=== PATIENT | male | born 1960 | race Caucasian/White ===

== ENCOUNTER 2023-06-24 14:07 | Emergency (ER) | payer BC, SELFPAY ==
[2023-06-24 14:18] VITALS: BP 183/101; PULSE 73; RESP 18; TEMP 36.8; O2SAT 100
--- NOTE | 2023-06-24 14:39 | ED.GENADULT ---
HPI - General Adult General Chief complaint: Ear Stated complaint: Lt Ear Pain and Bleeding Time Seen by Provider: 06/24/23 14:25 Source: patient Mode of arrival: ambulatory Limitations: no limitations History of Present Illness HPI narrative: 62-year-old male patient presents to the [facility] with complaints of left ear pain and bleeding. Patient states that he has been having some muffled hearing to the left ear for the past couple of days after having a recent cold. Patient states that his pain got worse today which made him decide to come in to be seen in on the way here he felt a pop to the ear and immediately had pain relief and noticed bright red blood coming from the ear. Patient states he had a ruptured eardrum when he was younger as well. Denies taking any daily antihistamines. Related Data Home Medications Medication Instructions Recorded Confirmed multivitamin PO DAILY 05/29/23 Allergies Allergy/AdvReac Type Severity Reaction Status Date / Time No Known Allergies Allergy Verified 06/24/23 14:24 Review of Systems Review of Systems: CONSTITUTIONAL: Denies fever, chills, or sweats. EYES: Denies visual changes, redness, or discharge. ENT: Denies rhinorrhea, congestion, sore throat, Positive left otalgia. CARDIOVASCULAR: Denies chest pain, palpitations, or edema. RESPIRATORY: Denies cough or dyspnea. GASTROINTESTINAL: Denies abdominal pain, nausea, vomiting, or diarrhea. GENITOURINARY: Denies dysuria or hematuria. SKIN: Denies rash or itching. MUSCULOSKELETAL: Denies back pain, joint pain, or myalgia. NEUROLOGIC: Denies headache, numbness, or weakness. PSYCHIATRIC: Denies anxiety or depression. PMFSH Past Medical History Medical History (Updated 06/24/23 @ 14:47 by PAMELLA Townsend) Anxiety Hypercholesteremia Hypertension Insomnia Prediabetes Family History Family History Father Hypertension Cerebrovascular accident Heart problem Social History Social History Smoking status: Never smoker Comments at the time of my signature I agree with nursing past medical history, surgical, social, and family history. There is no relevant family history pertinent to the presenting complaint. Exam Narrative: GENERAL: Well-appearing, well-nourished, and in no acute distress. HEAD: Normocephalic, atraumatic. EYES: PERRLA and EOMI. ENT: Nares clear, no rhinorrhea or epistaxis. Mucous membranes moist. the left tympanic membrane is perforated and there is bright red blood in the left ear canal. Posterior pharynx with no erythema, tonsillar enlargement, exudates or lesions present. NECK: Supple. No lymphadenopathy CHEST: Clear to auscultation. No respiratory distress. HEART: Regular rate and rhythm. No murmur heard. Normal peripheral pulses. ABDOMEN: Soft, nontender, nondistended, normal active bowel sounds. EXTREMITIES: Normal range of motion. No edema. SKIN: Warm, dry, no rash. NEURO: No focal deficits. Alert and oriented x3. Course Course Level of Care: Express Care Visit Vital Signs Vital signs: Vital Signs Temperature 36.8 C 06/24/23 14:18 Pulse Rate 73 06/24/23 14:18 Respiratory Rate 18 06/24/23 14:18 Blood Pressure 183/101 H 06/24/23 14:18 Pulse Oximetry 100 06/24/23 14:18 Oxygen Delivery Room Air 06/24/23 14:18 Temperature 36.8 C 06/24/23 14:18 Pulse Rate 73 06/24/23 14:18 Respiratory Rate 18 06/24/23 14:18 Blood Pressure 183/101 H 06/24/23 14:18 Pulse Oximetry 100 06/24/23 14:18 Oxygen Delivery Room Air 06/24/23 14:18 Vital signs reviewed. The patient has been informed that they may have pre-hypertension or Hypertension based on a BP reading in the department. I recommend that the patient call the primary care provider listed on their discharge instructions or a physician of their choice this week to arrang
== END 2023-06-24 15:24 | disposition home or self-care (01) ==
PROVIDERS: Emergency Provider Nurse Practitioner Family; PCP Family Medicine
DX: H66.92 Otitis media, unspecified, left ear (principal); H72.92 Unspecified perforation of tympanic membrane, left ear; E78.00 Pure hypercholesterolemia, unspecified; I10 Essential (primary) hypertension; R73.03 Prediabetes; F41.9 Anxiety disorder, unspecified
CPT/HCPCS: 99213; G0463

== ENCOUNTER 2025-03-04 00:34 | Day surgery (SDC) | payer BC, SELFPAY ==
[2025-02-17 14:56] VITALS: BMI 20.7
--- OUTSIDE RECORDS SUMMARY | 2025-03-04 05:26 | XMS_ITS | Clinical Summary ---
Author Organization [facility] Address [facility] [place] [address] Care Team Providers Care Candle Molder Name Role Phone Vineet Recio MD Primary Care Provider [phone] Allergies No known active allergies Medications multi vitamin/mineral s (THERA-M ENHANCED) tablet Take 1 tablet by mouth daily. Active atorvastatin (LIPITOR) 10 MG tabletIndicatio ns:Hypercholest erolemia Take 1 tablet (10 mg total) by mouth daily. 90 tablet 3 04/12/2023 Active lisinopril (PRINIVIL) 20 MG tabletIndicatio ns:Essential hypertension,Im paired fasting glucose Take 1 tablet (20 mg total) by mouth daily. 90 tablet 3 04/12/2023 Active clonazePAM (KLONOPIN) 0.5 MG tabletIndicatio ns:Primary insomnia Take 0.5-1 tablets (0.25-0.5 mg total) by mouth nightly as needed for Anxiety. 90 tablet 1 05/14/2023 Active Active Problems Problem Noted Date Diagnosed Date Bilateral impacted cerumen 05/28/2019 Onychomycosis 04/24/2018 Hypercholesterolemia 07/04/2017 Essential hypertension 07/04/2017 Impaired fasting glucose 03/08/2015 Primary insomnia 03/08/2015 Resolved Problems Problem Noted Date Diagnosed Date Resolved Date Prostate cancer screening 04/12/2023 Routine general medical exam ination at a health care facility 04/12/2023 04/16/2023 Screening for prostate cancer 03/23/2021 03/28/2021 Preventative health care 03/23/2021 Screening for prostate cancer 01/28/2020 02/02/2020 Preventative health care 01/28/2020 Screen for colon cancer 01/28/202001/14 Prostate cancer screening 10/23/2018 Encounter for preventive health examination 03/03/2015 12/26/2019 Immunizations Immunization Administration Dates Next Due Dt (1-<7 Y.O.) 02/13/2002,08/21/1992 Flublok (Quadrivalent) 04/12/2023,04/05/2022,11/2020,01/28/2020 Influenza (Generic) 01/25/2016 Shingrix 07/07/2020,01/28/2020 Tdap (Generic) 01/25/2016 Family History Medical History Relation Comments Heart Father CAD Hypertension Father Relation Status Comments Father Social History Tobacco Use Types Packs/Day Years Used Date Smoking Tobacco: Never Smokeless Tobacco: Never Alcohol Use Standard Drinks/Week Comments Yes 0 (1 standard drink = 0.6 oz pur e alcohol) AUDIT-C Answer Date Recorded Frequency of Alcohol Consumption Monthly or less 10/10/2018 Average Number of Drinks Not on file 019 Frequency of Binge Drinking Not on file 09/15 PHQ-2 Answer Date Recorded PHQ-2 Score - If the patient scores above 3, please move on to questions 3-9 0 03/23/2021 Sex and Gender Information Value Date Recorded Sex Assigned at Not on file Legal Sex Male 11:15 PM RN INTERN Gender Identity Not on file Sexual Orientation Not on file 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 Not on file Not on file Not on file Last Filed Vital Signs Vital Sign Reading Time Taken Comments Blood Pressure 132/82 04/12/2023 2:28 PM RN INTERN Pulse 74 04/05/2022 8:16 AM RN INTERN Temperature - - Respiratory Rate 14 05/28/2019 8:35 AM RN INTERN Oxygen Saturation - - Inhaled Oxygen Concentration - - Weight 73.5 kg (162 lb) 04/12/2023 2:28 PM RN INTERN Height 181.6 cm (5' 11.5) 04/12/2023 2:28 PM CS T Body Mass Index 22.28 04/12/2023 2:28 PM RN INTERN Plan of Treatment Health Maintenance Due Date Last Done Comments Hepatitis C 1976 Pneumococcal Vaccine: 50+ Years (1 of 1 - PCV) 2008 COVID-19 Vaccine (2 - season) 2024 12/08/2020 Influenza Adult (#1) 2025 04/12/2023, 04/05/2022, 03/23/2021, Additional history exists DTaP, Tdap and Td Vaccines (2 - Td or Tdap) 01/24/2026 01/25/2016, 02/13/2002, 08/21/1992 Colorectal Cancer Screening Colonoscopy (10 Years) 08/19/2030 08/19/2020, 05/13/2009 RSV Immunization or 60+ Years (1 - 1-dose 75+ series) 2033 Zoster Vaccines Completed 07/07/2020, 01/28/2020 Hepatitis A Vaccines Aged Out No long er eligible based on patient's age to complete this topic Meningococcal B Vaccine Aged Out No l onger eligible based on patient's age to complete this topic Meningococcal Vaccine Aged Out No thanh diana eligible based on patient's age to complete this topic RSV Immunizations Under 20 Months Aged Out No longer eligible based on patient's age to complete this topic Procedures Procedure Name Priority Date/Time Associated Diagnosis Comments COLONOSCOPY GENERIC (SCAN ORDER) Routine 08/19/2020 from Last 3 Months or Most Recently Relevant to Health Maintenance Results * COLONOSCOPY (08/19/2020) us Documents Scanned SCANNING Final Result [facility] from Last 3 Months or Most Recently Relevant to Health Maintenance Insurance [facility] Care Teams Candle Molder Relationship Specialty Start Date End Date Vineet Recio MD [address] [id number] PCP - General FAMILY PRACTICE 05/24/21
--- OUTSIDE RECORDS SUMMARY | 2025-03-04 05:26 | XMS_ITS | Clinical Summary ---
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 Gender Identity Not on file Sexual Orientation Not on file Plan of Treatment Health Maintenance Due Date Last Done Comments Hepatitis C Virus (HCV) Screening 1960 TdaP Immunization 1960 Cologuard 11/20/2003 Immunochemical Fecal Occult Blood 11/20/2003 Pneumococcal Immunization (5 0+ years) (1 of 1 - PCV) 2008 Influenza Immunization (#1) 2024 01/28/2020 SARS-COV-2 Immunization (2 - season) 2024 12/08/2020 Colonoscopy 08/19/2030 08/19/2020 Colorectal Cancer Screening 08/19/2030 Respiratory Syncytial Virus (RSV) Immunization (Adult) (1 - 1-dose 75+ series) 2033 Zoster Immunization Completed 07/07/2020, 01/28/2020 Hepatitis B Immunization Aged Out No longer eligible based on patient's age to complete this topic Human Papillomavirus (HPV) Immunization Aged Out No longer eligible b ased on patient's age to complete this topic Meningococcal Immunization (ACWY) Aged Out No longer eligible b ased on patient's age to complete this topic Rotavirus Immunization Aged Out No lo nger eligible based on patient's age to complete this topic
--- OUTSIDE RECORDS SUMMARY | 2025-03-04 05:26 | XMS_ITS ---
Author Organization Unknown ENCOUNTERS Encounter Performer Location Date Diagnosis Diagnosis Status Outpatient [address] [id number] *Note: Encounters from your own facility or health system may be excluded. Allergies, Adverse Reactions, Alerts Allergen Type Severity Identification Date Medications Name Date Quantity Days Supplied GPI Number
[2025-03-04 11:30] VITALS: BP 152/93; PULSE 70; RESP 18; TEMP 36.6; O2SAT 100
[2025-03-04] MEDS: LACTATED RINGERS 1,000 ML 150 ML IV CONT (11:43)
--- NOTE | 2025-03-04 11:56 | WPDANESEPPF ---
Anes - Initial Pre Proc Eval Procedure: Operation Date: 03/04/25 12:30 Proposed Procedures p Screening Colonoscopy - Mathieu Sauceda MD Date/Time: 03/04/25 11:56 Surgeon: Mathieu Sauceda MD Pre Op Diagnosis: screening Patient Data Age: 64 Gender: M Height: 1.83 m Weight: 69.2 kg Last Vital Signs Temp 98 F 03/04/25 11:30 Pulse 70 03/04/25 11:30 Resp 18 03/04/25 11:30 BP 152/93 H 03/04/25 11:30 Pulse Ox 100 03/04/25 11:30 O2 Del Method Room Air 03/04/25 11:30 Allergies Allergy/AdvReac Type Severity Reaction Status Date / Time No Known Allergies Allergy Verified 03/04/25 11:27 Home Medications ?Medication ?Instructions ?Recorded ?Confirmed ?Type multivitamin See Rx Instructions PO DAILY 05/29/23 03/04/25 History atorvastatin 10 mg tablet See Rx Instructions .Route 01/29/25 03/04/25 Rx .COMPLEX #90 tabs lisinopril 20 mg tablet See Rx Instructions .Route 01/29/25 03/04/25 Rx .COMPLEX #90 tabs clonazepam 0.5 mg tablet 0.5 mg PO DAILY #90 tabs 02/25/25 03/04/25 Rx Patient hx anesthesia problems: none Family hx anesthesia problems: none Results Review: All pre-operative results and documents have been reviewed as part of the pre-operative evaluation. [facility] Past Medical History Medical History Hypercholesteremia Hypertension Insomnia Prediabetes Anxiety Family History Family History Father Hypertension Cerebrovascular accident Heart problem Social History Social History Social History: Caffeine- one cup daily Smoking status: Never smoker Alcohol intake: current Alcohol use details: rarely Substance use: never Substance use type: does not use Living arrangements: with family Spiritual care concerns: No Anes - Eval Final PreProcedure Day of Procedure 03/04/25 11:56 Patient weight: normal Lungs: normal air movement Airway: Mallampati scale class II Neurological: alert and oriented Last oral intake: >/= 8 hours ASA classification: II Emergent: no Anesthetic plan: proceed Anesthesia type and monitoring: general GIVS and standard monitoring Results Review: All pre-operative results and documents have been reviewed as part of the pre-operative evaluation. HTN, hyperlipidemia, very physically active, walking miles/day, no cp or sob. Informed Consent: The patient's anesthetic plan and its attendant risks and benefits were discussed with the patient/family/POA. Questions were solicited and answers provided to the satisfaction of the patient/family/POA.
[2025-03-04] MEDS: SIMETHICONE ORAL SUSPENSION 20 MG/0.3 ML 30 ML BOTTLE 0.6 ML IRRIGATION (12:57)
--- NOTE | 2025-03-04 13:07 | S_PTH ---
PATIENT: Nba Jones LOC: DAVID #:[id number] AGE/SX: 64/M ROOM: RE03/04/[address]: Mathieu Sauceda MD : 1960 BED: DIS: 03/04/2025 SPEC #: [id number] RECD: 03/04/25 13:26 STATUS: JAMEEL REQ #: [id number] KATHY: 03/04/25 13:[address]: Mathieu Sauceda DEPT: [facility] Surgical RECD BY: Ayla Madera ENTERED: 03/04/25 13:27 SP TYPE: Surgical OTHR DR: Toni Johnson MD Tissues: A - Colon Polypectomy B - Colon Polypectomy Procedures: Hematoxylin and Eosin Stain Gross and Microscopic Level 4
--- NOTE | 2025-03-04 13:07 | PM.IMHP ---
H&P: HPI History of Present Illness Date/Time: 03/04/25 13:07 Chief Complaint: History of colon polyps Narrative: The patient has a history of colonic polyps, the last colonoscopy was about 5 years ago. Review of Systems Review of Systems: All systems reviewed & are unremarkable except as noted in HPI and below PMFSH Past Medical History Medical History Hypercholesteremia Hypertension Insomnia Prediabetes Anxiety Family History Family History Father Hypertension Cerebrovascular accident Heart problem Social History Social History Social History: Caffeine- one cup daily Smoking status: Never smoker Alcohol intake: current Alcohol use details: rarely Substance use: never Substance use type: does not use Living arrangements: with family Spiritual care concerns: No Meds Home Medications and Allergies Home Medications ?Medication ?Instructions ?Recorded ?Confirmed ?Type multivitamin See Rx Instructions PO DAILY 05/29/23 03/04/25 History atorvastatin 10 mg tablet See Rx Instructions .Route 01/29/25 03/04/25 Rx .COMPLEX #90 tabs lisinopril 20 mg tablet See Rx Instructions .Route 01/29/25 03/04/25 Rx .COMPLEX #90 tabs clonazepam 0.5 mg tablet 0.5 mg PO DAILY #90 tabs 02/25/25 03/04/25 Rx Allergies Allergy/AdvReac Type Severity Reaction Status Date / Time No Known Allergies Allergy Verified 03/04/25 11:27 Vital Signs Vital Signs - 24 hr 03/04/25 11:30 Temperature 98 F Pulse Rate 70 Respiratory Rate 18 Blood Pressure 152/93 H Pulse Oximetry 100 Oxygen Delivery Room Air Exam Const: General: cooperative and healthy appearing Resp: Effort & Inspection: normal respiratory effort and able to speak in complete sentences Auscultation: clear to auscultation bilaterally Cardio: Rate: regular rate Rhythm: regular rhythm GI: Inspection: normal to inspection GI Palp: No No hepatosplenomegaly present Auscultation: normal bowel sounds Rectal Exam: deferred Skin: General skin exam: normal color Psych: Appearance: grossly normal Mental Status: mental status grossly normal Assessment and Plan Assessment and plan (1) Colon cancer screening: Code(s): Z12.11 - Encounter for screening for malignant neoplasm of colon Status: Acute Assessment and Plan: The patient is deemed a good candidate for the procedure. Consent signed. Will proceed.
[2025-03-04 13:09] VITALS: BP 108/67; PULSE 65; RESP 14; O2SAT 99
[2025-03-04 13:19] VITALS: BP 120/78; PULSE 68; RESP 20; O2SAT 100
[2025-03-04 13:29] VITALS: BP 121/81; PULSE 60; RESP 17; O2SAT 100
== END 2025-03-04 13:31 | disposition home or self-care (01) ==
PROVIDERS: PCP Family Medicine; Referring Provider Family Medicine; Visit Provider Internal Medicine Gastroenterology
PROC: 0DJD8ZZ Inspection of Lower Intestinal Tract, Via Natural or Artificial Opening Endoscopic (ICD-10-PCS; CPT 45378; principal; 2025-03-04 12:30)
DX: Z12.11 Encounter for screening for malignant neoplasm of colon (principal); D12.2 Benign neoplasm of ascending colon; K63.5 Polyp of colon; K64.8 Other hemorrhoids; K57.30 Diverticulosis of large intestine without perforation or abscess without bleeding; I10 Essential (primary) hypertension; E78.00 Pure hypercholesterolemia, unspecified; R73.03 Prediabetes; F41.9 Anxiety disorder, unspecified; G47.00 Insomnia, unspecified; Z82.49 Family history of ischemic heart disease and other diseases of the circulatory system
CPT/HCPCS: 45385; 88305; J2003; J2704; J7120